=== PATIENT | female | born 1940 | race Two or more races ===

== ENCOUNTER 2024-02-25 16:52 | Emergency (ER) | payer OTHER ==
[~2024-02-25] VITALS: Ht 162.6 cm; Wt 80.0 kg
[2024-02-25] MEDS: HYDROcodone-ACET 10/325MG TAB PO ONE (17:15)
--- NOTE | 2024-02-25 17:27 | ED.PDOC ---
Musculoskeletal HPI Comments 83y F who presents to the ED for chief complaint of fall injury. Per EMS, pt was in living room and she was folding something and states she tripped and fell backwards on her back. pt denies any associated loss of consciousness but states since the fall, she has been having diffuse back pain. EMS states pt was [id number] but complaining of back pain. EMS states pt was given 100 mcg of fentanyl prior to ED arrival. Pt in the ED, states she is having pain to "T8, T9 and tailbone." Pt states the pain is 8/10 when sitting down and rates the pain 10/10 when attempting to ambulate. Patient has a history thoracic tailbone fracture. Pt otherwise is alert and oriented x 4 in the ED and able to answer a ll questions. Pt otherwise denies headache, dizziness, nausea, vomiting, fever, cough, chills, chest pain or shortness of breath. Pt otherwise denies any other symptoms at this time. Chief Complaint: Fall Injury Time Seen by MD: 17:21 Reviewed Notes: Nurses Notes, Community Relations Representative Notes, Medications, Allergies Allergies: Uncoded Allergies: CIRPO (Allergy, Unknown, 02/25/24) Information Source: Patient, Emergency Med Personnel Mode of Arrival: EMS Brought in by: EMS Location: Bilateral Extremity Location: Back Timing: Minutes Prehospital treatment: None Severity: Moderate Able to Move Extremity: Yes Bear Weight: Fully Pain: Moderate Mechanism: Other (Mechanical trip and fall) Circumstances: Fall Onset of Symptoms: After Trauma Symptoms: Pain Last Tetanus: UTD Associated signs and symptoms: None Past Medical History PAST MEDICAL HISTORY: Unknown Surgical History: Unknown Surgical History (Other): fracture of t8 and t9 as well as coccyx fracture 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 Family History Family History: Unknown Social History Smoker: Non-Smoker Alcohol: Denies ETOH Use Drugs: Denies Drug Use Lives In: Home Constitutional: denies: chills, diaphoresis, fatigue, fever, malaise, sweats, weakness, others EENTM: denies: blurred vision, double vision, ear bleeding, ear discharge, ear drainage, ear pain, ear ringing, eye pain, eye redness, hearing loss, mouth pain, mouth swelling, nasal discharge, nose bleeding, nose congestion, nose pain , photophobia, tearing, throat pain, throat swelling, voice changes, others Respiratory: denies: cough, hemoptysis, orthopnea, SOB at rest, shortness of breath, SOB with excertion, stridor, wheezing, others Cardiovascular: denies: chest pain, dizzy spells, diaphoresis, Dyspnea on exertion, edema, irregular heart beat, left arm pain, lightheadedness, palpitations, PND, syncope, others Gastrointestinal: denies: abdomen distended, abdominal pain, blood streaked bowels, constipated, diarrhea, dysphagia, difficulty swallowing, hematemesis, melena, nausea, poor appetite, poor fluid intake, rectal bleeding, rectal pain, vomiting, others Genitourinary: denies: abnormal vagina bleeding, burning, dyspareunia, dysuria, flank pain, frequency, hematuria, incontinence, pain, , vagina discharge, urgency, others Neurological: denies: dizziness, fainting, headache, left sided numbness, left sided weakness, numbness, paresthesia, pre-existing deficit, right sided numbness, right sided weakness, seizure, speech problems, tingling, tremors, weakness, others Musculoskeletal: reports: back pain; denies: gout, joint pain, joint swelling, muscle pain, muscle stiffness, neck pain, others Integumetry: denies: bruises, change in color, change in hair/nails, dryness, laceration, lesions, lumps, rash, wounds, others Allergic/Immunocompromised: denies: Difficulty Healing, Frequent Infections, Hives, Itching, others Hematologic/Lymphatic: denies: anemia, blood clots, easy bleeding, easy bruising, swollen glands, others Endocrine: denies: excessive hunger, excessive sweating, excessive thirst, excessive urination, flushing, intolerance to cold, intolerance to heat, unexplained weight gain, unexplained weight loss, others Psychiatric: denies: anxiety, bipolar disorder, depression, hopeless, panic disorder, schizophrenia, sleepless, suicidal, others All Other Systems: Reviewed and Negative Physical Exam General Appearance: Moderate Distress ([id number] distress due to back pain concerns.), Normal HEENT: Head (Cranial exam was unremarkable. No signs of trauma. No skull depr essions or deformities. No blood loss.), Normal ENT Inspection, Pharynx Normal, TMs Normal Neck: Full Range of Motion, Non-Tender, Normal, Normal Inspection Respiratory: Chest Non-Tender, Lungs Clear, No Accessory Muscle Use, No Respiratory Distress, Normal Breath Sounds Cardiovascular: No Edema, No JVD, No Murmur, No Gallop, Normal Peripheral Pulses, Regular Rate/Rhythm Breast Exam: Deferred Gastrointestinal: No Organomegaly, Non Tender, No Pulsatile Mass, Normal Bowel Sounds, Soft Genitalia: Deferred Pelvic: Deferred Rectal: Deferred Extremities: No calf tenderness, Normal capillary refill, Normal inspection, Normal range of motion, Non-tender, No pedal edema Musculoskeletal : Location: Bilateral Extremity Location: Back (Diffuse lower thoracic, lumbar coccyx tenderness to palpation. No ecchymosis, edema or erythema. No step-offs noted. Patient denies any saddle paresthesia. Bilateral distal neurovascularly intact.) Apperance: Normal Neurologic: Alert, tableman II-XII nml as Tested, No Motor Deficits, Normal Affect, Normal Mood, No Sensory Deficits Cerebellar Function: Normal Reflexes: Normal Skin: Dry, Normal Color, Warm Lymphatic: No Adenopathy Was a procedure done? Was a procedure done?: No Differential Diagnosis EXT Differential Diagnosis: Fracture, Sprain, Dislocation, Arthritis Other Differential Diagnosis chronic back pain, muscle strain, muscle spasm, lumbar radiculopathy, DJD X-Ray, Labs, Meds, VS Vital Signs Date Time Temp Pulse Resp B/P (MAP) Pulse Ox O2 Delivery O2 Flow Rate FiO2 02/25/24 18:28 71 18 98 Room Air* 0 21 02/25/24 18:27 98.1 71 18 153/70 (97) 98 98.1 02/25/24 17:05 97.7 76 16 154/80 (104) 98 Lab Test 02/25/24 19:06 Range/Units Urine Color Light-yellow Yellow Urine Clarity Clear Clear Urine pH 7.5 5.0-9.0 Urine Specific [place] 1.011 1.001-1.035 Urine Protein Negative Negative Urine Ketones Negative Negative Urine Blood Trace H Negative /uL Urine Nitrite Negative Negative Urine Bilirubin Negative Negative Urine Urobilinogen Normal Negative mg/dL Urine Leukocyte Esterase 2+ Negative /uL Urine RBC 13 0 - 4 /hpf Urine WBC 20 0 - 5 /hpf Urine Squamous Epithelial Cells Few <5 /hpf Urine Bacteria Few H None Seen /hpf Urine Glucose Normal Normal mg/dL Current Medications Medications (Trade) Dose Ordered Sig/[place]ot Route Start Time Stop Time Status Last Admin Acetaminophen/ Hydrocodone Bitart ([place] 10/325MG Tab) 1 tab ONCE ONCE PO 02/25/24 17:15 02/25/24 17:16 DC 02/25/24 17:15 X-Ray, Labs, Meds, VS Comment All studies performed in the ED today were reviewed by me personally. Imaging studies were for any acute fractures. Thoracic coccyx fractures were noted. Radiology concurred with my assessment. Laboratories revealed a small urinary tract infection. Patient was given her 1st dose of antibiotics prior to discharge and has been advised to utilize antibiotics as directed until completion. Patient needs to follow up with the primary care provider for continued management as she has opioid pain medication available at home. Time of 1ST Reevaluation: 19:42 Reevaluation 1ST: Improved Consultation: PCP Patient Education/Counseling: Diagnosis, Treatment Family Education/Counseling: Diagnosis, Treatment, No Family Present Departure 1 Departure Time of Disposition: 19:42 Impression: Primary Impression: Fall Additional Impressions: Back contusion UTI (urinary tract infection) Disposition: HOME / SELF CARE / HOMELESS Condition: Stable Additional Instructions: Advised patient utilize antibiotics as directed until completion and additionally, follow up with the primary care provider for continued evaluation management of long-term back pain concerns. e-Prescriptions Cephalexin (KEFLEX CAPSULE) 250 Mg Cp 1 CAP PO QID for 7 Days, #28 CAP Prov: HANNAH IBANEZ 02/25/24 Discharged With: Self, Relative Critical Care Note Critical Care Time?: No Stability Stability form required: No Heart Score Heart Score: Heart Score Response (Comments) Value History N/A 0 EKG N/A 0 Age N/A 0 Risk Factors N/A 0 Troponin N/A 0 Total 0 I personally scribed for HANNAH IBANEZ PAC ([email or web address]) on 02/25/24 at 17:27. Electronically submitted by Uche Mcnally ([email or web address]). HANNAH IBANEZ PAC Feb 25, 2024 17:27
--- NOTE | 2024-02-25 18:07 | DVH ---
EXAM: XY SPINE THORACIC 2VIEW INDICATION: fall COMPARISON: None TECHNIQUE: 2 views of the thoracic spine were obtained. Findings: There is no evidence of an acute fracture, spondylolysis, or spondylolisthesis. Cement augmentation of a severe compression fracture of a lower thoracic vertebra. The disc spaces are well-maintained. No blastic or lytic lesions are appreciated. No radiopaque foreign bodies. No superficial soft tissue abnormalities. Impression: 1. No acute osseous abnormality. 2. Cement augmentation of a severe compression fracture of a lower thoracic vertebra.
--- NOTE | 2024-02-25 18:07 | DVH ---
EXAM: XY SACRUM AND COCCYX CLINICAL HISTORY: fall COMPARISON: None TECHNIQUE: XY SACRUM AND COCCYX Findings/Impression: 2 views of the sacrum/coccyx. There is no evidence of an acute fracture, dislocation, blastic, or lytic lesions. Posterior spinal fusion of L4-L5. No superficial soft tissue abnormalities.
--- NOTE | 2024-02-25 18:11 | DVH ---
EXAM: XY LUMBAR SPINE 3 VIEW INDICATION: fall COMPARISON: None TECHNIQUE: 2 views of the lumbar spine were obtained. Findings: There is no evidence of an acute fracture or spondylolysis. Grade 1 anterolisthesis of L4 on L5. The vertebral body heights and disc spaces are well-maintained. No blastic or lytic lesions are appreciated. Posterior spinal fusion of L4-L5. No superficial soft tissue abnormalities. Impression: 1. No acute osseous abnormality. 2. Grade 1 anterolisthesis of L4 on L5.
[2024-02-25 18:28] VITALS: PULSE 71; RESP 18; O2SAT 98
[2024-02-25 19:00] VITALS: TEMP 98
[2024-02-25 19:25] LABS: Urine Bacteria FEW /hpf (None Seen); Urine Blood TRACE /uL (Negative); Urine Clarity Clear (Clear); Urine Color Light-Yellow (Yellow); Urine Protein, UAD Negative (Negative); Urine Specific Gravity 1.011 (1.001-1.035); Urine Urobilinogen Normal (Negative); Urine WBC 20 /hpf (0 - 5); Urine pH 7.5 (5.0-9.0)
[2024-02-25 19:30] VITALS: PULSE 75; RESP 14; O2SAT 96
[2024-02-25] MEDS ORDERED: CEPH250C PO (19:43)
[2024-02-25] MEDS: CEPHALEXIN 250 MG CAP PO ONE (20:09)
[2024-02-25 20:10] VITALS: BP 135/77; PULSE 71; RESP 18; O2SAT 98
== END 2024-02-25 20:15 | disposition home or self-care (01) ==
LOC: EDBD 16:52 → ER 16:59
DX: S20.229A Contusion of unspecified back wall of thorax, initial encounter (principal); N39.0 Urinary tract infection, site not specified; Z98.1 Arthrodesis status; W01.0XXA Fall on same level from slipping, tripping and stumbling without subsequent striking against object, initial encounter; Y93.89 Activity, other specified; Y92.89 Other specified places as the place of occurrence of the external cause; Y99.8 Other external cause status
CPT/HCPCS: 72070; 72100; 72220; 81001